=== PATIENT | female | born 1990 | race Caucasian/White ===

== ENCOUNTER 2021-04-06 09:12 | Inpatient (IN) | payer BC ==
[~2021-04-06 09:12] MED LIST: Bupivacaine 0.25% HCL 30 ML VIAL ONE
[2021-04-06 11:10] VITALS: BMI 39.1
[2021-04-06] MEDS ORDERED: Diphenoxylate HCl/Atropine Tablet PO PRN (12:18)
[2021-04-06] MEDS ORDERED: Zolpidem Tartrate 5 MG TAB PO PRN (12:18)
[2021-04-06] MEDS ORDERED: Butorphanol Tartrate 1 MG/ML VIAL SLOW IVP PRN (12:18)
[2021-04-06] MEDS ORDERED: Promethazine HCl 25 MG/ML VIAL IM PRN ×2 (12:18→18:53)
[2021-04-06] MEDS ORDERED: hydrALAZINE 20 MG/ML VIAL SLOW IVP PRN (12:18)
[2021-04-06] MEDS ORDERED: Methylergonovine 0.2 MG/ML VIAL IM PRN (12:18)
[2021-04-06] MEDS ORDERED: Misoprostol 200 MCG TAB PR PRN (12:18)
[2021-04-06] MEDS ORDERED: Ibuprofen 800 MG TAB PO PRN (12:18)
[2021-04-06] MEDS ORDERED: Ondansetron PF 4 MG/2 ML Vial IVP PRN ×2 (12:18→18:53)
[2021-04-06] MEDS ORDERED: Carboprost 250 MCG/ML AMP IM PRN (12:18)
[2021-04-06] MEDS ORDERED: Lidocaine 1% (PF) 30 ML VIAL SC PRN (12:18)
[2021-04-06] MEDS ORDERED: NS w/ Oxytocin 30 units 500 ML IV SCH ×2 (12:30)
[2021-04-06] MEDS: Lactated Ringer's 1,000 ML IV SCH ×2 (13:23→17:11)
[2021-04-06] MEDS: CEFAZOLIN 1 GM in Sodium Chloride 0.9% 100 ML IVPB SCH ×2 (13:39→21:28)
[2021-04-06 14:03] LABS: Hemoglobin 12.2 g/dL (12.0-15.5); Mean Corpuscular HGB CONC 33.2 g/dL (32.0-36.0); Mean Corpuscular Hemoglobin 28.2 pg (27.0-33.0); Mean Corpuscular Volume 85.2 fl (81.6-98.3); Mean Platelet Volume 9.6 fl (7.4-10.4); Platelet Count 254 10x3/uL (150-450); RBC Distribution Width 13.1 % (11.5-14.5); Red Blood Cell (RBC) Count 4.32 10x6/uL (3.90-5.03)
[2021-04-06 14:21] LABS: SARS-CoV-2 NAA Rapid Test Not Detected (NotDetected)
[2021-04-06 14:34] LABS: Hep B Surf Ag Non-Reactive S/CO (NonReactive)
[2021-04-06 14:35] LABS: Syphilis Antibody Nonreactive (Nonreactive); Syphilis Antibody Index 0.03 S/CO (<1.00 Non-Reactive)
[2021-04-06] MEDS ORDERED: Fentanyl 2 mcg/Bup 0.1% Cadd 100 ML ONE (14:53)
[2021-04-06 15:12] LABS: HBSAg Index 0.16 S/CO (0-0.99)
[2021-04-06] MEDS ORDERED: Naloxone HCl 0.4 mg/ml Vial IVP PRN ×2 (18:53)
[2021-04-06] MEDS ORDERED: Hydrocerin (Eucerin) Cream 120 gm Jar TOP PRN (18:53)
[2021-04-06] MEDS ORDERED: diphenhydrAMINE 50 MG/ML VIAL IVP PRN (18:53)
[2021-04-06] MEDS ORDERED: ePHEDrine Sulfate 50 MG/10 ML VIAL SLOW IVP PRN (18:53)
[2021-04-06] MEDS ORDERED: Lactated Ringer's 500 ML IV PRN (18:53)
[2021-04-06] MEDS ORDERED: Communication Order-Pharmacy FS SCH (19:00)
[2021-04-06] MEDS ORDERED: Fentanyl 2 mcg/Bupivacaine 0.1% Cassette 100 ML EPIDURAL SCH (19:00)
[2021-04-06] MEDS: Acetaminophen 325 MG TAB PO PRN (22:37)
[2021-04-07] MEDS ORDERED: NS w/ Oxytocin 30 units 500 ML IV SCH (02:45)
[2021-04-07] MEDS ORDERED: hydrALAZINE 20 MG/ML VIAL SLOW IVP PRN (02:45)
[2021-04-07] MEDS ORDERED: Benzocaine-Menthol 82.5 ML CAN TOP PRN (02:45)
[2021-04-07] MEDS ORDERED: Milk Of Magnesia 30 ML UDCUP PO PRN (02:45)
[2021-04-07] MEDS ORDERED: Lanolin Ointment 7 GM TUBE TOP PRN (02:45)
[2021-04-07] MEDS ORDERED: Bisacodyl 10 MG SUPP PR PRN (02:45)
[2021-04-07] MEDS ORDERED: Boostrix 0.5 ML (Tdap) VIAL IM ONE (02:45)
[2021-04-07 04:39] LABS: Mean Corpuscular HGB CONC 33.8 g/dL (32.0-36.0); Mean Corpuscular Hemoglobin 28.7 pg (27.0-33.0); Mean Corpuscular Volume 84.9 fl (81.6-98.3); Mean Platelet Volume 9.2 fl (7.4-10.4); Platelet Count 235 10x3/uL (150-450); RBC Distribution Width 13.2 % (11.5-14.5); Red Blood Cell (RBC) Count 3.83 10x6/uL (3.90-5.03); White Blood Cell (WBC) Count 20.5 10x3/uL (3.5-10.5)
[2021-04-07] MEDS: Lactated Ringer's 1,000 ML IV SCH ×4 (05:53→23:58)
[2021-04-07 06:07] LABS: MDiff Complete? YES
[2021-04-07 06:11] LABS: Band 14 % (5-11); Lymphocytes 6 % (21-51); Monocytes 4 % (0-10); Neutrophil 75 % (42-75); Reactive Lymphocytes 1 % (0-10)
[2021-04-07 06:12] LABS: Platelet Morphology Comment Appears Adequate; RBC Morphology Normal
[2021-04-07] MEDS: Ferrous Sulfate 325 MG TAB PO SCH ×2 (07:49→17:13)
[2021-04-07] MEDS: Docusate Calcium (SURFAK) 240 MG CAP PO SCH ×2 (08:00→21:13)
[2021-04-07] MEDS ORDERED: Ampicillin/Sulbactam 3 GM in Sodium Chloride 0.9% 100 ML IVPB SCH (09:00)
[2021-04-07] MEDS: Acetaminophen 325 MG TAB PO PRN (13:41)
[2021-04-07] MEDS: Ibuprofen 800 MG TAB PO SCH (21:13)
[2021-04-08] MEDS: Ibuprofen 800 MG TAB PO SCH ×3 (04:33→21:35)
[2021-04-08] MEDS: Ferrous Sulfate 325 MG TAB PO SCH (07:43)
[2021-04-08] MEDS: Docusate Calcium (SURFAK) 240 MG CAP PO SCH ×2 (08:50→21:35)
[2021-04-08] MEDS: Lactated Ringer's 1,000 ML IV SCH (12:07)
[2021-04-09] MEDS: Lactated Ringer's 1,000 ML IV SCH ×3 (03:43→12:11)
[2021-04-09] MEDS: Ferrous Sulfate 325 MG TAB PO SCH ×2 (03:43→08:14)
[2021-04-09] MEDS: Ibuprofen 800 MG TAB PO SCH ×2 (05:39→14:15)
[2021-04-09 07:46] VITALS: BP 127/70; TEMP 97.6
[2021-04-09] MEDS: Docusate Calcium (SURFAK) 240 MG CAP PO SCH (08:14)
== END 2021-04-09 14:30 | disposition home or self-care (01) | DRG 807 ==
LOC: CSHLD/OP 09:12 → CSHLD 12:34 → CSHPP 04-07 05:10
PROVIDERS: ADMIT Obstetrics & Gynecology; ATTEND Obstetrics & Gynecology
PROC: 10907ZC Drainage of Amniotic Fluid, Therapeutic from Products of Conception, Via Natural or Artificial Opening (ICD-10-PCS; 2021-04-06)
PROC: 10H07YZ Insertion of Other Device into Products of Conception, Via Natural or Artificial Opening (ICD-10-PCS; 2021-04-06)
PROC: 10E0XZZ Delivery of Products of Conception, External Approach (ICD-10-PCS; principal; 2021-04-07)
DX: O99.824 Streptococcus B carrier state complicating childbirth (principal); Z37.0 Single live birth; Z3A.39 39 weeks gestation of pregnancy; Z20.822 Contact with and (suspected) exposure to COVID-19; O77.0 Labor and delivery complicated by meconium in amniotic fluid; O69.81X0 Labor and delivery complicated by cord around neck, without compression, not applicable or unspecified; O71.82 Other specified trauma to perineum and vulva; Z88.0 Allergy status to penicillin
CPT/HCPCS: 36415; 51702; 85025; 85027; 86762; 86780; 86850; 86900; 86901; 87340; 99285; J0690; J2590; J3490; J7120; S0020; U0002

== ENCOUNTER 2022-12-31 08:23 | Day surgery (SDC) | payer OTHER ==
[2022-12-31 08:53] VITALS: BMI 38.0
== END 2022-12-31 11:08 | disposition home or self-care (01) ==
LOC: CSHLD/OP 08:23
PROVIDERS: ATTEND Advanced Practice Midwife
DX: O99.213 Obesity complicating pregnancy, third trimester (principal); O47.1 False labor at or after 37 completed weeks of gestation; E66.9 Obesity, unspecified; Z88.0 Allergy status to penicillin; Z79.899 Other long term (current) drug therapy; Z3A.38 38 weeks gestation of pregnancy
CPT/HCPCS: 76815; 99283

== ENCOUNTER 2023-01-01 03:03 | Inpatient (IN) | payer OTHER ==
[2023-01-01 03:31] VITALS: BMI 38.0
[2023-01-01] MEDS ORDERED: Ondansetron PF 4 MG/2 ML Vial IVP PRN ×2 (04:03→06:25)
[2023-01-01] MEDS ORDERED: Methylergonovine 0.2 MG/ML VIAL IM PRN (04:03)
[2023-01-01] MEDS ORDERED: Lidocaine 1% (PF) 30 ML VIAL SC PRN (04:03)
[2023-01-01] MEDS ORDERED: hydrALAZINE 20 MG/ML VIAL SLOW IVP PRN ×2 (04:03→10:29)
[2023-01-01] MEDS ORDERED: Ibuprofen 800 MG TAB PO PRN (04:03)
[2023-01-01] MEDS ORDERED: Acetaminophen 500 MG TAB PO PRN (04:03)
[2023-01-01] MEDS ORDERED: Carboprost 250 MCG/ML AMP IM PRN (04:03)
[2023-01-01] MEDS ORDERED: Misoprostol 200 MCG TAB PR PRN (04:03)
[2023-01-01] MEDS ORDERED: Promethazine HCl 25 MG/ML VIAL IM PRN ×2 (04:03→06:25)
[2023-01-01] MEDS ORDERED: NS w/ Oxytocin 30 units 500 ML IV SCH ×2 (04:15→10:29)
[2023-01-01 05:00] LABS: ALT (SGPT) 12 U/L (8-55); AST (SGOT) 13 U/L (5-34); Albumin 3.6 g/dL (3.5-5.0); Alkaline Phosphatase 166 U/L (40-110); Anion Gap 16 mmol/L (10-20); BUN (Urea Nitrogen) 6 mg/dL (7.0-18.7); Bilirubin, Total 0.3 mg/dL (0.2-1.2); Calc. Creatinine Clearance 197 mL/min (70-130); Calcium 8.8 mg/dL (7.8-10.44); Carbon Dioxide 17 mmol/L (22-29); Chloride 107 mmol/L (98-107); Estimated GFR 122; Globulin 3.1 g/dL (2.4-3.5); Glucose 118 mg/dL (70-105); Potassium 3.8 mmol/L (3.5-5.1); Protein, Total 6.7 g/dL (6.0-8.3); Sodium 136 mmol/L (136-145)
[2023-01-01 05:11] LABS: Hemoglobin 12.6 g/dL (12.0-15.5); Mean Corpuscular HGB CONC 34.1 g/dL (32.0-36.0); Mean Corpuscular Hemoglobin 28.5 pg (27.0-33.0); Mean Corpuscular Volume 83.7 fl (81.6-98.3); Mean Platelet Volume 9.4 fl (7.4-10.4); Platelet Count 251 10x3/uL (150-450); RBC Distribution Width 13.1 % (11.5-14.5); Red Blood Cell (RBC) Count 4.42 10x6/uL (3.90-5.03); White Blood Cell (WBC) Count 16.2 10x3/uL (3.5-10.5)
[2023-01-01] MEDS ORDERED: fentaNYL/Ropivacaine Epidural 100 ML ONE (05:12)
[2023-01-01 05:19] LABS: HBSAg Index 0.17 S/CO (0-0.99); Hep B Surf Ag - L&D Non-Reactive S/CO (NonReactive); Syphilis Antibody Nonreactive (Nonreactive); Syphilis Antibody Index 0.05 S/CO (<1.00 Non-Reactive)
[2023-01-01] MEDS ORDERED: ePHEDrine Sulfate 50 MG/10 ML VIAL SLOW IVP PRN (06:25)
[2023-01-01] MEDS ORDERED: Lactated Ringer's 500 ML IV PRN (06:25)
[2023-01-01] MEDS ORDERED: Naloxone HCl 0.4 mg/ml Vial IVP PRN ×2 (06:25)
[2023-01-01] MEDS ORDERED: diphenhydrAMINE 50 MG/ML VIAL IVP PRN (06:25)
[2023-01-01] MEDS ORDERED: Moisturizing Cream (Eucerin) 113 GM JAR TOP PRN (06:25)
[2023-01-01] MEDS ORDERED: Acetaminophen 325 MG TAB PO PRN (06:25)
[2023-01-01] MEDS ORDERED: fentaNYL 2 mcg/Ropivacaine 0.2% Epidural 100 ML CADD EPIDURAL SCH (06:30)
[2023-01-01] MEDS ORDERED: Communication Order-Pharmacy FS SCH (06:30)
[2023-01-01] MEDS ORDERED: Fentanyl 250 MCG/5 ML VIAL ONE (07:23)
[2023-01-01] MEDS ORDERED: fentaNYL 50 mcg/mL 1 mL Vial ONE (07:23)
[2023-01-01] MEDS ORDERED: Lidocaine 1% 20 ML MDV SC PRN (07:45)
[2023-01-01] MEDS ORDERED: Bupivacaine 0.25% HCL 30 ML VIAL ONE (08:00)
[2023-01-01] MEDS ORDERED: Boostrix 0.5 ML (Tdap) VIAL (>/=7 yrs of age) IM ONE (10:29)
[2023-01-01] MEDS ORDERED: Preparation H Ointment 28 GM TUBE PR PRN (10:29)
[2023-01-01] MEDS ORDERED: HYDROcodone/Acetaminophen 5/325 mg Tablet PO PRN ×2 (10:29)
[2023-01-01] MEDS ORDERED: Bisacodyl 10 MG SUPP PR PRN (10:29)
[2023-01-01] MEDS ORDERED: Misoprostol 200 MCG TAB VAG PRN (10:29)
[2023-01-01] MEDS ORDERED: Benzocaine-Menthol 82.5 ML CAN TOP PRN (10:29)
[2023-01-01] MEDS ORDERED: Milk Of Magnesia 30 ML UDCUP PO PRN (10:29)
[2023-01-01] MEDS ORDERED: Lanolin Ointment 7 GM TUBE TOP PRN (10:29)
[2023-01-01] MEDS ORDERED: Prenatal Vitamin 1 TAB PO SCH (10:45)
[2023-01-01] MEDS ORDERED: Docusate 100 MG CAP PO SCH (10:45)
[2023-01-01] MEDS: Ferrous Sulfate 325 MG TAB PO SCH (11:41)
[2023-01-01] MEDS: Ibuprofen 800 MG TAB PO SCH ×2 (14:24→21:31)
[2023-01-02] MEDS: Docusate 100 MG CAP PO SCH ×2 (00:35→08:46)
[2023-01-02 07:37] VITALS: BP 105/60; TEMP 98.1
[2023-01-02] MEDS: Ferrous Sulfate 325 MG TAB PO SCH (08:46)
[2023-01-02] MEDS: Ibuprofen 800 MG TAB PO SCH ×2 (08:47→13:36)
[2023-01-02] MEDS ORDERED: Prenatal Vitamin 1 TAB PO SCH (09:00)
== END 2023-01-02 14:35 | disposition home or self-care (01) | DRG 807 ==
LOC: CSHLD/OP 03:03 → CSHLD 04:49 → CSHPP 09:55
PROVIDERS: ADMIT Obstetrics & Gynecology; ATTEND Obstetrics & Gynecology
PROC: 10E0XZZ Delivery of Products of Conception, External Approach (ICD-10-PCS; principal; 2023-01-01)
DX: O80 Encounter for full-term uncomplicated delivery (principal); Z37.0 Single live birth; Z88.0 Allergy status to penicillin; Z3A.38 38 weeks gestation of pregnancy; Z79.899 Other long term (current) drug therapy
CPT/HCPCS: 36415; 80053; 82570; 84156; 85027; 86780; 86850; 86900; 86901; 87340; 99285; J2405; J2590; J3010; S0020